=== PATIENT | male | born 1990 | race African-American/Black ===

== ENCOUNTER 2018-04-16 16:34 | Emergency (ER) | payer OTHER ==
[2018-04-16] MEDS ORDERED: ACETAMINOPHEN 325 MG TABLET PO ONE (16:55)
--- NOTE | 2018-04-16 16:57 | ER Document Report ---
ED Medical Screen (RME) - General Chief Complaint: Headache Stated Complaint: CO2 LEAK/HEAD PAIN Time Seen by Provider: 04/16/18 16:51 Mode of Arrival: Ambulatory Information source: Patient Notes: 28-year-old male presents emergency department complaints of a generalized dull aching headache for the last 2 days. He states that his place of work had a carbon monoxide leak that was detected this morning. Patient is coming to the emergency department to get checked out. He states that he has been taking Motrin for his headache with minimal relief of symptoms. He denies any neuro deficits. I have greeted and performed a rapid initial assessment of this patient. A comprehensive ED assessment and evaluation of the patient, analysis of test results and completion of the medical decision making process will be conducted by additional ED providers. PHYSICAL EXAMINATION: GENERAL: Well-appearing, well-nourished and in no acute distress. HEAD: Atraumatic, normocephalic. EYES: Pupils equal round extraocular movements intact, conjunctiva are normal. ENT: Nares patent NECK: Normal range of motion LUNGS: No respiratory distress Musculoskeletal: Normal range of motion NEUROLOGICAL: Normal speech, normal gait. PSYCH: Normal mood, normal affect. SKIN: Warm, Dry, normal turgor, no rashes or lesions noted. TRAVEL OUTSIDE OF THE [place] IN LAST 30 DAYS: No - Related Data Allergies/Adverse Reactions: No Known Allergies Allergy (Unverified 04/16/18 16:36) Past Medical History Renal/ Medical History: Denies: Hx Peritoneal Dialysis Physical Exam - Vital signs Vitals: Temp Pulse Resp BP Pulse Ox 98.3 F 72 16 109/66 99 04/16/18 16:40 04/16/18 16:40 04/16/18 16:40 04/16/18 16:40 04/16/18 16:40 Course - Vital Signs Vital signs: Temp Pulse Resp BP Pulse Ox 98.3 F 72 16 109/66 99 04/16/18 16:40 04/16/18 16:40 04/16/18 16:40 04/16/18 16:40 04/16/18 16:40
--- NOTE | 2018-04-16 17:46 | ER Document Report ---
ED General - General Chief Complaint: Headache Stated Complaint: CO2 LEAK/HEAD PAIN Time Seen by Provider: 04/16/18 16:51 Mode of Arrival: Ambulatory TRAVEL OUTSIDE OF THE [place] IN LAST 30 DAYS: No - HPI Notes: Patient is a 28-year-old male with no significant past medical history who presents to the ED complaining of possible carbon monoxide exposure at his work over the last couple days. Patient states that he has had a dull intermittent headache over the last couple days and his coworkers and other people were evaluated for carbon monoxide leak here in the emergency department earlier today. Patient states that he wanted to get checked out as precautionary. Patient states that he currently does not have a headache after receiving Tylenol from triage he is feeling much better. He has not had any trouble breathing. He is eating and drinking without any difficulties. He is urinating normally and having normal bowel movements. He denies any smoking history. Denies any fever, head injury, neck pain, changes in vision/speech/ mentation/hearing, URI, sore throat, chest pain, palpitations, syncope, cough, shortness of breath, wheeze, dyspnea, abdominal pain, nausea/vomiting/diarrhea, urinary retention, dysuria, hematuria, loss of control of bowel or bladder, numbness/tingling, saddle anesthesia, muscle paralysis/weakness, or rash. - Related Data Allergies/Adverse Reactions: No Known Allergies Allergy (Unverified 04/16/18 16:36) Past Medical History - General Information source: Patient - Social History Smoking Status: Unknown if Ever Smoked Family History: Reviewed & Not Pertinent Patient has suicidal ideation: No Patient has homicidal ideation: No Renal/ Medical History: Denies: Hx Peritoneal Dialysis Review of Systems - Review of Systems -: Yes All other systems reviewed and negative Physical Exam - Vital signs Vitals: Temp Pulse Resp BP Pulse Ox 98.3 F 72 16 109/66 99 04/16/18 16:40 04/16/18 16:40 04/16/18 16:40 04/16/18 16:40 04/16/18 16:40 - Notes Notes: PHYSICAL EXAMINATION: GENERAL: Well-appearing, well-nourished and in no acute distress. A&Ox4. Answers questions appropriately. HEAD: Atraumatic, normocephalic. Non-tender. EYES: Pupils equal round and reactive to light, extraocular movements intact, sclera anicteric, conjunctiva are normal. No nystagmus. vis price intact. ENT: EAC clear b/l. TM's intact b/l without erythema, fluid, or perforation. Nares patent and without discharge. oropharynx clear without exudates. No tonsilar hypertrophy or erythema. Moist mucous membranes. No sinus tenderness. NECK: Normal range of motion, supple without lymphadenopathy. No rigidity/ meningismus. No midline tenderness. LUNGS: Breath sounds clear to auscultation bilaterally and equal. No wheezes rales or rhonchi. HEART: Regular rate and rhythm without murmurs, rubs, gallops. ABDOMEN: Soft, nontender, nondistended abdomen. No guarding, no rebound. Normal bowel sounds present. No CVA tenderness bilaterally. Musculoskeletal: Ext's b/l: FROM to passive/active. Strength 5+/5. No deficits noted. No bony tenderness of extremities. Extremities: No cyanosis, clubbing, or edema b/l. Peripheral pulses 2+. Capillary refill less than 2 seconds. NEUROLOGICAL: NIH 0. GCS 15. Cranial nerves grossly intact. Normal speech, normal gait. Normal sensory, motor exams. Reflexes 2+ b/l. RENE's negative. Pronator drift negative. Heel/[place], finger/nose wnl. PSYCH: Normal mood, normal affect. SKIN: Warm, Dry, normal turgor, no rashes or lesions noted. Course - Re-evaluation Re-evalutation: 04/16/18 17:30 Possible CO exposure. Pt was given tylenol at triage and placed on O2 by non- rebreather. Pt currently asymptomatic. We will check CO level as well as VBG and keep on O2 with re-eval thereafter. 04/16/18 18:39 Patient is an afebrile, well-hydrated, 28-year-old male who presents to the ED with carbon monoxide exposure without acute poisoning and currently resolved headache. Vitals are acceptable without any significant tachycardia, tachypnea , or hypoxia. PE is otherwise unremarkable for any focal neurological deficits. Patient is not altered. He has not had any dyspnea, shortness of breath, or chest pains. His carbon monoxide level as well as venous blood gas were unremarkable for any acute pathology. Patient has remained asymptomatic and has been on a nonrebreather throughout his entire stay. Patient states that he is feeling much better and would like to go home. He has no other concerns or complaints. No further labs or imaging warranted at this time. Low suspicion for any acute intracranial pathology, cardiac injury, sepsis, meningitis, severe dehydration, respiratory compromise, or other systemic emergent condition at this time. Patient is aware that condition can change from initial presentation and he needs to monitor symptoms closely and seek medical attention with any acute changes. Conservative measures for symptoms. Recheck with your PCM in 3-5 days. Return to the ED with any worsening/ concerning symptoms otherwise as reviewed in discharge. Patient is in agreement. - Vital Signs Vital signs: Temp Pulse Resp BP Pulse Ox 98.3 F 72 16 109/66 99 04/16/18 16:40 04/16/18 16:40 04/16/18 16:40 04/16/18 16:40 04/16/18 16:40 Discharge - Discharge Clinical Impression: Exposure to carbon monoxide Headache Qualifiers: Headache type: unspecified Headache chronicity pattern: acute headache Intractability: not intractable Qualified Code(s): R51 - Headache Condition: Stable Disposition: HOME, SELF-CARE Instructions: Headache ([facility]), Carbon Monoxide ([facility]) Additional Instructions: Maintain adequate fluid and food intake Take home medications as directed Healthy diet Monitor symptoms for any acute changes Recheck with your PCM in 3-5 days Return to the ED with any worsening symptoms and/or development of fever, headache, chest pain, palpitations, syncope, shortness of breath, trouble breathing, abdominal pain, n/v/d, blood in stool/urine, loss of control of bowel /bladder, urinary retention, muscle weakness/paralysis, numbness/tingling, or other worsening symptoms that are concerning to you. Referrals: [facility] [Provider Group] - Follow up as needed [facility] [Provider Group] - Follow up as needed
[2018-04-16 18:07] LABS: VENOUS BLOOD BASE EXCESS 2.8 mmol/L; VENOUS BLOOD HCO3 30.1 mmol/L (20-32); VENOUS BLOOD PCO2 56.6 mmHg (35-63); VENOUS BLOOD PH 7.34 (7.30-7.42)
[2018-04-16 18:55] VITALS: BP 107/58
== END 2018-04-16 18:55 | disposition home or self-care (01) ==
LOC: ER 16:34
DX: T58.91XA Toxic effect of carbon monoxide from unspecified source, accidental (unintentional), initial encounter (principal); R51 Headache; X58.XXXA Exposure to other specified factors, initial encounter
CPT/HCPCS: 36415; 82375; 82803; 99283